=== PATIENT | male | born 1940 | race Caucasian/White ===

== ENCOUNTER 2017-05-16 08:57 | Inpatient (IN) | payer MEDICARE, BC ==
[~2017-05-16] VITALS: Ht 188 cm; Wt 71.5 kg
[2017-05-16] MEDS ORDERED: SODIUM CHLORIDE FLUSH 10ML SYR IVF ONE (09:30)
[2017-05-16] MEDS ORDERED: INSU100V5 SQ-INSULIN (09:59)
[2017-05-16] MEDS ORDERED: LISI40TA PO (09:59)
[2017-05-16] MEDS ORDERED: LEVO200T5 PO (09:59)
[2017-05-16] MEDS ORDERED: SIMV10TA3 PO (09:59)
[2017-05-16] MEDS ORDERED: INSU100C SQ-INSULIN (09:59)
[2017-05-16] MEDS ORDERED: METO-99 PO (09:59)
[2017-05-16] MEDS ORDERED: RIVA20TA PO (09:59)
[2017-05-16 10:08] LABS: HEMATOCRIT 37.4 % (39.2-51.8); HEMOGLOBIN 12.4 g/dL (13.7-18.0); WHITE BLOOD COUNT 8.5 x10^3/uL (3.4-10)
[2017-05-16 10:12] LABS: BLOOD UREA NITROGEN 32 mg/dL (7-18)
[2017-05-16] MEDS ORDERED: GADOBUTROL 10 MMOL/10 ML PFS ONE (14:39)
[2017-05-16] MEDS ORDERED: SODIUM CHLORIDE FLUSH 10ML SYR IVF PRN (15:00)
[2017-05-16] MEDS ORDERED: SODIUM CHLORIDE 0.9% 1,000 ML IV SCH (15:33)
[2017-05-16] MEDS ORDERED: ACETAMINOPHEN 650 MG/20.3 ML UDC PO PRN (16:00)
[2017-05-16] MEDS ORDERED: ALUMINUM/MAG/SIMETHICONE 30 ML UDC PO PRN (16:00)
[2017-05-16] MEDS ORDERED: DOCUSATE CALCIUM 240 MG CAPSULE PO PRN (16:00)
[2017-05-16 16:46] VITALS: BP 197/69
[2017-05-16] MEDS: INSULIN ASPART 100 UNITS/ML, PEN SQ-INSULIN SCH ×2 (18:03→21:39)
[2017-05-16] MEDS ORDERED: NPH,100V5 SC (18:32)
[2017-05-16 19:02] VITALS: BP 206/70
[2017-05-16] MEDS ORDERED: SIMVASTATIN 10 MG TABLET PO SCH (21:00)
[2017-05-16] MEDS: INSULIN NPH HUMAN 100 UNIT/ML, 3ML VIAL SQ-INSULIN SCH (21:38)
[2017-05-17 01:09] VITALS: BP 169/72
[2017-05-17 06:59] VITALS: BP 170/68
[2017-05-17] MEDS: INSULIN ASPART 100 UNITS/ML, PEN SQ-INSULIN SCH ×4 (07:00→21:02)
[2017-05-17] MEDS: ASPIRIN 81 MG TABLET EC PO SCH (10:03)
[2017-05-17] MEDS: LEVOTHYROXINE 200 MCG TABLET PO SCH (10:04)
[2017-05-17] MEDS: LISINOPRIL 20 MG TABLET PO SCH (10:04)
[2017-05-17] MEDS: RIVAROXABAN 20 MG TABLET PO SCH (10:04)
[2017-05-17] MEDS: METOPROLOL TARTRATE 100 MG TABLET PO SCH (10:12)
[2017-05-17 12:46] VITALS: BP 184/72
[2017-05-17] MEDS ORDERED: hydrALAzine 20 MG/ML, 1ML IV PRN (18:00)
[2017-05-17] MEDS ORDERED: ENALAPRILAT 1.25 MG/ML, 2ML IV PRN (18:00)
[2017-05-17] MEDS ORDERED: LABETALOL 5MG/ML, 20ML IVPush PRN (18:00)
[2017-05-17 18:37] VITALS: BP 191/67
[2017-05-17 19:48] VITALS: BP 163/63
[2017-05-17] MEDS ORDERED: SIMVASTATIN 40 MG TABLET PO SCH (21:00)
[2017-05-17] MEDS: INSULIN NPH HUMAN 100 UNIT/ML, 3ML VIAL SQ-INSULIN SCH (21:01)
[2017-05-17] MEDS: HYDROCHLOROTHIAZIDE 12.5 MG CAPSULE PO SCH (21:03)
[2017-05-17 23:59] VITALS: BP 165/63
[2017-05-18 03:55] VITALS: BP 177/73
[2017-05-18 04:37] VITALS: BP 167/66
[2017-05-18] MEDS: LEVOTHYROXINE 200 MCG TABLET PO SCH (05:10)
[2017-05-18] MEDS: INSULIN ASPART 100 UNITS/ML, PEN SQ-INSULIN SCH ×2 (07:00→12:35)
[2017-05-18 08:46] VITALS: BP 172/72
[2017-05-18] MEDS: RIVAROXABAN 20 MG TABLET PO SCH (09:26)
[2017-05-18] MEDS: METOPROLOL TARTRATE 100 MG TABLET PO SCH (09:26)
[2017-05-18] MEDS: ASPIRIN 81 MG TABLET EC PO SCH (09:26)
[2017-05-18] MEDS: HYDROCHLOROTHIAZIDE 12.5 MG CAPSULE PO SCH (09:26)
[2017-05-18] MEDS: LISINOPRIL 20 MG TABLET PO SCH (09:27)
[2017-05-18] MEDS ORDERED: ASPI-621 PO (12:52)
[2017-05-18] MEDS ORDERED: SIMV40TA3 PO (12:52)
[2017-05-18] MEDS ORDERED: NPH,100V SQ-INSULIN (12:52)
[2017-05-18] MEDS ORDERED: HYDR25TA6 PO (12:52)
== END 2017-05-18 14:30 | disposition home or self-care (01) | DRG 65 ==
LOC: ED 09:41 → EDIP 14:36 → 4EST 16:07 → DCLOUNGE 05-18 14:05
PROVIDERS: ADMIT Family Medicine; ATTEND Family Medicine
DX: I63.431 Cerebral infarction due to embolism of right posterior cerebral artery (principal); D68.69 Other thrombophilia; I48.0 Paroxysmal atrial fibrillation; E10.9 Type 1 diabetes mellitus without complications; I10 Essential (primary) hypertension; E03.9 Hypothyroidism, unspecified; E78.5 Hyperlipidemia, unspecified; E78.00 Pure hypercholesterolemia, unspecified; Z79.4 Long term (current) use of insulin; Z80.1 Family history of malignant neoplasm of trachea, bronchus and lung; Z86.73 Personal history of transient ischemic attack (TIA), and cerebral infarction without residual deficits; Z79.01 Long term (current) use of anticoagulants; Z81.2 Family history of tobacco abuse and dependence; Z84.89 Family history of other specified conditions
CPT/HCPCS: 36415; 70544; 70549; 70553; 80048; 80061; 82040; 82947; 82962; 85025; 85610; 85730; 93005; 93306; 99285; A9585; J1815; 92523-GN; J0360; J7030